=== PATIENT | female | born 1970 | race Caucasian/White ===

== ENCOUNTER 2021-05-14 18:03 | Emergency (ER) | payer OTHER ==
[2021-05-14 19:35] LABS: HEMOGLOBIN 13.4 gm/dl (12.3-15.3); RED BLOOD COUNT 4.16 M/UL (4.00-5.10); WHITE BLOOD COUNT 12.5 K/UL (4.5-11.0)
[2021-05-14 19:59] LABS: BUN/CREATININE RATIO 16 (0-10)
== END 2021-05-14 20:27 | disposition home or self-care (01) ==
LOC: ER1 18:03
PROVIDERS: Preventive Medicine Occupational Medicine
DX: R22.0 Localized swelling, mass and lump, head (principal); R06.02 Shortness of breath; T50.995A Adverse effect of other drugs, medicaments and biological substances, initial encounter
CPT/HCPCS: 71045; 80053; 85025; 96374; 96375; 99284; J1200; J2930